=== PATIENT | male | born 1985 | race Two or more races ===

== ENCOUNTER 2023-05-30 20:41 | Emergency (ER) | payer OTHER, SELFPAY ==
--- NOTE | ~2023-05-30 | XR_ITS ---
EXAMINATION: XR KNEE, LEFT CLINICAL INFORMATION: Fall. Pain. COMPARISON: None available. TECHNIQUE: Four views of the left knee. FINDINGS: The bone mineralization is normal. No fracture is seen. The joint spaces are fairly well-maintained. There is no joint effusion. There is prepatellar soft tissue swelling. XR/XR knee LT 3V IMPRESSION: 1. No fracture, dislocation or joint effusion is seen. 2. There is prepatellar soft tissue swelling.
[2023-05-30 20:50] VITALS: BP 128/80; PULSE 93; O2SAT 99
[2023-05-30 21:19] VITALS: BP 133/72; PULSE 87; RESP 18; TEMP 37.2; O2SAT 97; BMI 30.3
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
[2023-05-31 00:21] VITALS: BP 113/61; PULSE 84; RESP 14; O2SAT 96
--- NOTE | 2023-05-31 00:56 | ED_ITS ---
HPI - General Adult General Chief complaint: Extremity Injury, Lower Stated complaint: blisters on feet? Time Seen by Provider: 05/31/23 00:23 Source: patient, RN notes reviewed and old records reviewed Mode of arrival: ambulatory Limitations: no limitations History of Present Illness HPI narrative: 37-year-old male presents for evaluation of multiple complaints. Patient initially checked in complaining of ?blisters on my feet. ? He reports that he was walking for ?weeks in wet socks. ? Patient reports pain, irritation to both feet He states ?they feel like paper cuts all over. ? Denies any trauma to the area He does however complain of left knee pain He states that he slipped and fell on the left knee a few days ago No fevers or chills Related Data Allergies Allergy/AdvReac Type Severity Reaction Status Date / Time oxycodone [OXYCODONE] Allergy Mild RASH Verified 05/30/23 21:18 Review of Systems Constitutional: Constitutional: Denies chills, Denies fever(s) and Denies frequent falls Musculoskeletal: Musculoskeletal: Reports arthralgias, Denies joint swelling and Denies limited range of motion Integumentary/Breasts: Skin/Breast: Reports erythema, Reports skin pain and Reports wounds Neurologic: Denies frequent falls PMFSH Social History Social History Advance Directives: No Advance Directives Information Provided: Yes Physical Exam ED Vital Signs: Vital Signs - 24 hr 05/30/23 21:19 05/31/23 00:21 Temperature 98.9 F Pulse Rate 87 84 Respiratory Rate 18 14 Blood Pressure 133/72 113/61 Pulse Oximetry 97 96 Oxygen Delivery Method Room Air Room Air BMI result Body Mass Index 30.3 Const General: healthy appearing, comfortable, no acute distress, alert and awake Nutritional Appearance: well nourished Orientation/consciousness: patient oriented x3 HENMT Head: Yes normocephalic and Yes atraumatic Eyes Eyelids: Yes eyelids normal Conjunctivae: conjunctivae normal Sclerae: sclerae normal Corneas: corneas normal Pupils: Equal, round and reactive pupils present EOM: EOMs intact bilaterally Neck Neck: Yes full ROM Resp Effort & Inspection: normal respiratory effort, able to speak in complete sentences and not labored Cardio Other: DP pulses 2+ intact to both feet. Capillary refill under 3 seconds Skin Other: Patient has mild blotchy erythema to both feet. No significant, consistent beefy red erythema or increased warmth. There are no blisters to the feet bilaterally. He does have several small abrasions mostly between the toes bilaterally. No significant edema to the lower extremities bilaterally. No de ep open wounds or ulcerations noted General skin exam: elasticity normal Neuro General: patient oriented x3 Cranial nerves: Yes Equal, round and reactive pupils present and Yes Bilaterally intact EOM present Cognition (Neuro): normal cognition Extrem Other: Moving all extremities well without any obvious deformities. There is no edema, ecchymosis, wounds to the left knee. He has full range of motion with flexion and extension. Medications Administered Discontinued Medications Generic Name Dose Route Start Last Admin Trade Name Freq PRN Reason Stop Dose Admin Multi-Ingred Cream/Lotion/Oil/Oint 1 appl 05/31/23 00:40 05/31/23 01:03 Mineral Oil/Petrolatum,White 106 Gm Tube TOPICAL 05/31/23 00:41 Not Given ONCE ONE Protocol Medical Decision Making Medical Decision Making MDM Narrative: 37-year-old male presents for evaluation of what he describes as blisters to both feet. He appears to have several abrasions and dry, cracked skin. There are no deep wounds. No evidence of fungal or bacterial infection. We will treat with petroleum jelly. Will get an x-ray of the left knee as the patient reports that he fell a few days ago. He has a reassuring exam with no significant edema, joint effusion and he has full range of motion. Differential Diagnosis Differential Diagnoses: The differential diagnosis associated with the presentation includes Tinea pedis Dry skin Trench foot Cellulitis Left knee pain Contusion Left knee fracture Independent Interpretation I performed an independent interpretation of an: Plain X-Ray (No acute fracture of the left knee) Discharge Plan Discharge Clinical Impression: Dry skin, Knee pain, left Patient Disposition: Home, Self-Care Instructions: Knee Pain (ED) Additional Instructions: Your feet do not appear infected, but you should use petroleum jelly or lotion to prevent dry, cracked skin that can get infected. Try to keep your shoes and socks dry to prevent further issues. Your x-ray did not show any evidence of fracture. You may use ibuprofen or Tylenol for pain
[2023-05-31 02:43] VITALS: BP 127/64; PULSE 78; RESP 18; O2SAT 96
== END 2023-05-31 06:35 | disposition home or self-care (01) ==
PROVIDERS: Emergency Provider Internal Medicine
DX: M25.562 Pain in left knee (principal); L85.3 Xerosis cutis; Z59.00 Homelessness unspecified
CPT/HCPCS: 73562; 99283; 99284

== ENCOUNTER 2023-05-31 10:38 | Emergency (ER) | payer OTHER, SELFPAY ==
--- NOTE | 2023-05-31 10:44 | ECG_ITS ---
Test Reason : CP Blood Pressure : / mmHG Vent. Rate : 079 BPM Atrial Rate : 079 BPM P-R Int : 136 ms QRS Dur : 098 ms QT Int : 368 ms P-R-T Axes : 052 065 030 degrees QTc Int : 421 ms Normal sinus rhythm Normal ECG No previous ECGs available Referred By: Generic ED Physician Electronically Signed By:KIRSTEN MOORE
[2023-05-31 11:00] VITALS: BP 114/76; PULSE 88; RESP 16; TEMP 36.5; O2SAT 97; BMI 33.4
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
--- OUTSIDE RECORDS SUMMARY | 2023-05-31 11:36 | XMS_ITS | Patient Health Record ---
Author Name Unknown Organization [facility] Address [address], [place] [id number] Care Team Providers Care Vise Hand Name Role Phone No, PCP Primary Care Provider Unavailabl e [facility], [facility] Unavailable [phone] ALLERGIES Allergen (clinical drug ingredient) Drug/Non Drug [...] Insured Coverage Start Date Coverage End Date [place] Medicaid Standard [address] [place] [address] [id number] Nelson Penaloza Self - patient is the [...]
== END 2023-05-31 12:17 | disposition home or self-care (01) ==
PROVIDERS: Emergency Provider Student in an Organized Health Care Education/Training Program
DX: R07.9 Chest pain, unspecified (principal); Z59.00 Homelessness unspecified
CPT/HCPCS: 93005; 99283

== ENCOUNTER → 2023-05-31 10:44 | Outpatient (BNV) | payer OTHER, SELFPAY | PROVIDERS: Emergency Provider Student in an Organized Health Care Education/Training Program; Visit Provider Internal Medicine | DX: R07.9 Chest pain, unspecified (principal) | CPT/HCPCS: 93010 ==